=== PATIENT | male | born 1995 | race Caucasian/White ===

== ENCOUNTER 2022-11-25 00:07 | Emergency (ER) | payer OTHER ==
[2022-11-25] MEDS ORDERED: Ketorolac 30 MG/ML SDV IVPUSH ONE (00:22)
[2022-11-25] MEDS ORDERED: Cyclobenzaprine 10 MG Tab PO ONE (00:22)
[2022-11-25] MEDS ORDERED: Acetaminophen/HYDROcodone 325-5 MG Tab PO STA (01:34)
[2022-11-25] MEDS ORDERED: Morphine 4 MG/ML VIAL IM ONE (02:33)
== END 2022-11-25 04:40 | disposition home or self-care (01) ==
LOC: FB.ED 00:07
DX: S39.012A Strain of muscle, fascia and tendon of lower back, initial encounter (principal); Z86.16 Personal history of COVID-19; X50.0XXA Overexertion from strenuous movement or load, initial encounter
CPT/HCPCS: 96372; 96374; 99284-25; A9270-GY; J1885; J2270